=== PATIENT | male | born 1955 | race Caucasian/White ===

== ENCOUNTER → 2020-12-12 15:58 | Outpatient (CLI) | payer MEDICARE, BC, SELFPAY ==
--- NOTE | 2020-12-12 16:05 | XR_ITS ---
PROCEDURE: XR SHOULDER LT MIN 2V CLINICAL INDICATION: ACUTE PAIN OF LT SHOULDER COMPARISON: No exams were available for comparison FINDINGS: No fracture or dislocation. No lytic or blastic change. There is normal mineralization. The joint spaces are well-preserved. No significant degenerative/arthritic changes. No erosive changes evident. Other findings:Minimal hyperostosis of the lateral aspect of the acromion consistent with small enthesophyte.. IMPRESSION: No acute findings. Dictated by: Glenn Akers MD 12/12/2020 16:44 Glenn Akers MD in [facility] 12/12/2020 16:44
--- NOTE | 2020-12-12 16:05 | XR_ITS ---
PROCEDURE: XR WRIST LT MIN 3V CLINICAL INDICATION: ACUTE PAIN OF LT SHOULDER Injury with pain COMPARISON: No exams were available for comparison FINDINGS: There is a bony fragment along the dorsal and mid aspect of the wrist measures 4 mm and is consistent with triquetrum avulsion fracture. Minimal dorsal displacement of the fracture fragment by 2 mm. The joint spaces are well-preserved. No significant degenerative/arthritic changes. No erosive changes evident. Other findings:None. IMPRESSION: Mildly displaced avulsion fracture of the triquetrum Dictated by: Glenn Akers MD 12/12/2020 16:46 Glenn Akers MD in [facility] 12/12/2020 16:46
== END ==
PROVIDERS: PCP Physician Assistant; Visit Provider Physician Assistant
DX: M25.512 Pain in left shoulder (principal); M25.532 Pain in left wrist
CPT/HCPCS: 73030; 73110

== ENCOUNTER → 2021-01-13 16:29 | Outpatient (CLI) | payer BC, SELFPAY ==
--- NOTE | 2021-01-13 16:43 | MR_ITS ---
PROCEDURE: MR SHOULDER LT WO CON CLINICAL INDICATION: PAIN IN LEFT SHOULDER COMPARISON: CR XR SHOULDER LT MIN 2V from 12/12/2020 TECHNIQUE: Routine multiplanar multi echo sequences are performed without gadolinium enhancement. FINDINGS: There is acromioclavicular hypertrophy. A full-thickness tear involves the distal aspect of the supraspinatus tendon posteriorly. The there may be some intact fibers anteriorly. There is diffuse thickening the supraspinatus tendon with increase in T2 signal. Tendinopathy/tendinosis noted of the subscapularis. The teres minor tendon has an unremarkable appearance. No obvious labral tear. The bicipital tendon is in place. Small amount fluid is present in the bicipital tendon sheath. There is some increased T2 signal involving the greater tuberosity the humerus. Small amount fluid is present in the subdeltoid region. No significant subacromial stenosis. IMPRESSION: Full-thickness tear involves the supraspinatus tendon posteriorly with tendinopathy/tendinosis. There does appear to be some intact fibers anteriorly. Tendinopathy/tendinosis of the subscapularis Tenosynovitis of the bicipital tendon sheath Dictated by: Glenn Akers MD 01/14/2021 08:27 Glenn Akers MD in [facility] 01/14/2021 08:27
== END ==
PROVIDERS: PCP Physician Assistant; Visit Provider Orthopaedic Surgery Adult Reconstructive Orthopaedic Surgery
DX: M25.512 Pain in left shoulder (principal)
CPT/HCPCS: 73221